=== PATIENT | male | born 1960 | race Caucasian/White ===

== ENCOUNTER → 2017-02-19 | Outpatient (CLI) | payer OTHER ==
--- NOTE | 2017-02-19 08:43 | KCIC ---
Ultrasound abdomen Indication: Elevated liver enzymes. Hepatic Doppler was performed. The portal vein is patent and demonstrates normal direction of flow. The hepatic artery is patent. The hepatic veins demonstrate normal pulsatility. The splenic vein is patent and shows normal direction of flow. Aorta is unremarkable. Impression: Unremarkable hepatic Doppler. Electronically signed by: Fareed Isabel MD (Feb 19, 2017 08:42:51)
== END | disposition home or self-care (01) ==
LOC: KCIC US 07:33
PROVIDERS: ATTEND Internal Medicine Gastroenterology
DX: R74.8 Abnormal levels of other serum enzymes (principal)
CPT/HCPCS: 76770

== ENCOUNTER → 2017-03-01 | Outpatient (CLI) | payer OTHER ==
[2017-03-01] VITALS (10 sets, daily range): BP systolic 118–157; BP diastolic 63–103
[~2017-03-01] VITALS: Ht 182.9 cm; Wt 117.9 kg
[~2017-03-01] MED LIST: LIDOCAINE 1% / SOD BICARB 8.4% 20 ML VIAL. IJ ONE; MIDAZOLAM HCL/PF 5 MG/5 ML VIAL. IV ONE; MIDAZOLAM HCL/PF 5 MG/5 ML VIAL. ONE; PROP20TA PO; fentaNYL PF VIAL 100 MCG/2 ML VIAL IV ONE; fentaNYL PF VIAL 250 MCG/5 ML VIAL ONE
[2017-03-01 07:36] LABS: BASO # 0.1 x10^3/uL (0.0-0.2); BASO % 1 % (0-3); EOS % 10 % (0-3); HEMATOCRIT 45.9 % (39.0-53.0); HEMOGLOBIN 15.2 g/dL (13.0-17.5); LYMPH # 2.3 x10^3/uL (1.0-4.8); LYMPH % 29 % (24-48); MEAN CORPUSCULAR HEMOGLOBIN 30 pg (25-35); MEAN CORPUSCULAR HGB CONC 33 g/dL (31-37); MEAN CORPUSCULAR VOLUME 90 fL (79-100); MONO % 11 % (0-9); NEUT % 49 % (31-73); PLATELET COUNT 161 x10^3/uL (140-400); RED CELL DISTRIBUTION WIDTH 13.6 % (11.5-14.5); WHITE BLOOD COUNT 8.1 x10^3/uL (4.0-11.0)
--- NOTE | 2017-03-01 10:06 | PDOC ---
MODERATE SEDATION ASSESSMENT RISKS/ALTERNATIVES Risks/Alternatives Risks and alternatives of this type of sedation and procedure discussed with: RISK/ALTERNATIVES: Patient H & P ON CHART H & P H & P on chart and reviewed for co-morbid conditions and appropriate labs. H&P ON CHART: Yes STATUS PREG STATUS ASSESSED: N/A MEDS/ALLERGIES REVIEWED Meds/Allergies Reviewed Medications and Allergies including time and route of recently administered narcotics and sedatives. MEDS/ALLERGIES REVIEWED: Yes ASA RATING ASA RATING: I AIRWAY ASSESSMENT Airway Assessment Airway patency, oral function limitations, presence of caps, crowns, dentures, partials, and ability to extend neck assessed. AIRWAY ASSESSMENT: Yes MALLAMPATI SCORE MALLAMPATI SCORE: II PRE-SEDATION ASSESSMENT PRE-SEDATION ASSESSMENT: Yes JOHN AHUMADA MD March 01, 2017 10:06
--- NOTE | 2017-03-01 10:09 | PDOC1 ---
History and Physical Date of Procedure Date of Admission 03/01/[address] guided liver bx Indication Indication Elevated LFTS. Clinical suspicion of Carlos's disease. Past Medical History Past Medical History See Nursing Pre procedure PMH Past Surgical History Past Surgical History See Nursing Pre procedure PSH Current Medications Current Medications Current Medications Lidocaine/Sodium Bicarbonate (Buffered Lidocaine 1%) 20 ml STK-MED ONCE IJ ; Start 03/01/17 at 09:30; Stop 03/01/17 at 09:31; Status DC Midazolam HCl (Versed) 5 mg STK-MED ONCE .ROUTE ; Start 03/01/17 at 09:40; Stop 03/01/17 at 09:41; Status DC Fentanyl Citrate (Fentanyl 5ml Vial) 250 mcg STK-MED ONCE .ROUTE ; Start at 09:40; Stop 03/01/17 at 09:41; Status DC Midazolam HCl (Versed) 2 mg 1X ONCE IV Last administered on 03/01/17 09:56; Start 03/01/17 at 10:00; Stop 03/01/17 at 10:01; Status DC Fentanyl Citrate (Fentanyl 2ml Vial) 100 mcg 1X ONCE IV Last administered on 09:55; Start 03/01/17 at 10:00; Stop 03/01/17 at 10:01; Status DC Lidocaine/Sodium Bicarbonate (Buffered Lidocaine 1%) 3 ml 1X ONCE IJ Last administered on 03/01/17 09:56; Start 03/01/17 at 10:00; Stop 03/01/17 at 10:01; Status DC Active Scripts Active Reported Propranolol Hcl 20 Mg Tablet 1 Tab PO BID Allergies Allergies: Coded Allergies: Penicillins (Verified Allergy, Intermediate, 03/01/17) codeine (Verified Allergy, Intermediate, 03/01/17) Physical Exam Vital Signs Vital Signs Date Time Temp Pulse Resp B/P (MAP) Pulse Ox O2 Delivery O2 Flow Rate FiO2 03/01/17 09:57 65 17 95 Nasal Cannula 2.0 03/01/17 07:46 98.3 157/103 (121) 98.3 Lungs: Clear to auscultation Heart: Regular rate Psych/Mental Status: Mental status NL Assessment Assessment Elevated LFTS. ? Carlos's disease per patient. Problems: Plan Plan CT guided liver bx JOHN AHUMADA MD March 01, 2017 10:09
--- NOTE | 2017-03-01 10:15 | PDOC ---
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 ? of Carlos's disease per patient history. Post-Procedure Diagnosis Post-Procedure Diagnosis Same Procedure Performed Procedure Performed CT guided liver bx Type of Anesthesia Type of Anesthesia Local + Mod sedation. Estimated Blood Loss EBL: Minimal Specimens Specimans 3 18G core bx in formalin to path Condition of Patient Condition of Patient Stable. No apparent complication. Disposition Disposition Home from [facility] post recovery, if no bleeding or other issues. F/u with Dr Treviño. Full report to follow. JOHN AHUMADA MD March 01, 2017 10:15
--- NOTE | 2017-03-02 06:46 | RAD ---
CT-guided liver biopsy Indication: 56-year-old male with elevated LFTs, and with clinical suspicion of Carlos's disease. Image guided liver biopsy has been requested by GI. Anesthesia: 16 minutes moderate sedation was provided utilizing a total of 2 mg Versed and 100 mcg fentanyl, IV. The patient was appropriately monitored by a qualified independent observer throughout the time of moderate sedation. Consent: The procedure was explained in its entirety to the patient and/or the patient's designated packaging sales representative by a member of the treatment team. This included a discussion of risks and benefits and acceptable alternatives to the procedure, as well as expected consequences of no treatment at all. Discussion of risks included, but was not limited to, those that are most frequent and those that are rare, but possibly severe or life-threatening, as well as the possibility of unforeseen complications. Procedure: Informed consent was obtained from the patient. He was placed supine on the CT scanner. Preliminary noncontrast CT images were obtained through liver. A skin site suitable for CT-guided biopsy of right lobe of liver was selected and marked. That area was prepped and draped in the usual sterile fashion. Conscious sedation was provided with IV Versed and fentanyl. Using aseptic technique, local anesthesia, and CT guidance, a 17-gauge guide needle was successfully introduced into posterior segment right lobe of liver. Three 18-gauge core biopsy samples were then obtained and were submitted in formalin to pathology. Hemostasis was achieved with autologous clot introduced through the biopsy guide needle, which was then removed. A sterile dressing was applied. Patient tolerated the procedure well without apparent complication. Completion CT images revealed no evidence of significant intraparenchymal, subcapsular, or perihepatic hemorrhage. Impression: Successful, uneventful CT-guided liver biopsy, as described. PQRS Compliance Statement: One or more of the following individualized dose reduction techniques was utilized for this procedure: 1. Automated exposure control. 2. Adjustment of MA and/or KV according to patient size. 3. Iterative reconstruction technique.
== END | disposition home or self-care (01) ==
LOC: INTRAD 06:52
PROVIDERS: ATTEND Internal Medicine Gastroenterology
DX: K76.89 Other specified diseases of liver (principal); K21.9 Gastro-esophageal reflux disease without esophagitis; Z87.39 Personal history of other diseases of the musculoskeletal system and connective tissue; F17.200 Nicotine dependence, unspecified, uncomplicated
CPT/HCPCS: 36415; 47000; 77012; 85027; 85610; J2250; J3010